=== PATIENT | female | born 1995 | race Hispanic/Latino ===

== ENCOUNTER 2017-04-06 06:30 | Emergency (ER) | payer MEDICAID, SELFPAY ==
[2017-04-06 06:51] LABS: Bilirubin Negative (Negative); Blood, Urine Negative (Negative); Glucose, Urine (Dipstick) Negative (Negative); Ketone, Urine Negative (Negative); Nitrite Negative (Negative); Protein, Urine (Dipstick) Negative (Neg-Trace)
[2017-04-06 06:52] LABS: Bacteria/HPF 2+ HPF (None Seen); Hyaline Casts/LPF 0-3 HYALINE CAST LPF (0-3 Hyaline); RBC/HPF 0-3 HPF (0-3); WBC/HPF 21-50 HPF (0-3)
[2017-04-06 07:14] LABS: #Basophils 0.1 thou/uL (0.0-0.2); #Eosinphils 0.1 thou/uL (0.0-0.7); #Lymphocytes 3.2 thou/uL (1.20-3.40); #Monocytes 0.4 thou/uL (0.11-0.59); #Neutrophils 4.7 thou/uL (1.40-6.50); %Basophils 0.9 % (0.0-1.0); %Eosinophils 1.5 % (0.0-10.0); %Lymphocytes 37.3 % (28.0-48.0); %Monocytes 4.8 % (0.0-4.0); Hematocrit 41.1 % (36.0-47.0); Mean Platelet Volume 10.5 fL (7.4-10.4); Red Blood Cell (RBC) Count 4.38 mill/uL (4.00-5.20); White Blood Cell (WBC) Count 8.5 thou/uL (4.8-10.8)
[2017-04-06 07:35] LABS: ALT (SGPT) 12 U/L (8-55); AST (SGOT) 13 U/L (5-30); Alkaline Phosphatase 79 U/L (40-150); Anion Gap 9 mmol/L (10-20); BUN (Urea Nitrogen) 17 mg/dL (8.4-21.0); Bilirubin, Total 0.5 mg/dL (0.2-1.2); Calc. Creatinine Clearance 0 mL/min (70-130); Calcium 9.5 mg/dL (7.8-10.44); Carbon Dioxide 25 mmol/L (22-29); Chloride 108 mmol/L (98-107); Estimated GFR-MDRD Greater than 90; Globulin 2.8 g/dL (2.4-3.5); Protein, Total 7.1 g/dL (6.0-8.3)
[2017-04-06 07:45] LABS: Troponin I Less than 0.010 ng/mL (< 0.028)
--- NOTE | 2017-04-06 08:54 | RAD ---
2 VIEWS CHEST: Date: 04/06/17 HISTORY: Chest pain FINDINGS: The lungs are well aerated. No evidence of active intrathoracic disease seen. No evidence of effusion s, pneumonia, or pneumothorax seen. IMPRESSION: Normal 2 views chest. POS: [facility]
== END 2017-04-06 09:25 | disposition home or self-care (01) ==
LOC: ERS 06:30
DX: R07.89 Other chest pain (principal); R00.2 Palpitations; I49.9 Cardiac arrhythmia, unspecified
CPT/HCPCS: 36415; 71020; 80053; 81003; 81015; 81025; 82553; 84484; 85025; 85379; 93005

== ENCOUNTER 2020-08-28 14:26 | Outpatient (CLI) | payer MEDICAID | END 2020-08-28 14:27 | disposition home or self-care (01) | LOC: BICULT 14:26 | PROVIDERS: ATTEND Nurse Practitioner Family | DX: N64.4 Mastodynia (principal) ==